=== PATIENT | female | born 1965 | race Caucasian/White ===

== ENCOUNTER → 2017-08-04 | Outpatient (CLI) | payer BC ==
[~2017-08-04] MED LIST: FLX10 PO; [UNRECOGNIZED DRUG - REMARK]
--- NOTE | 2017-08-05 07:48 | MAMMOGRAPHY REPORT ---
BILATERAL DIGITAL SCREENING MAMMOGRAM TOMOSYNTHESIS WITH CAD: 08/04/2017 CLINICAL HISTORY: Routine screening. Patient has no complaints. TECHNIQUE: Breast tomosynthesis in addition to standard 2D mammography was performed. Current study was also evaluated with a Computer Aided Detection (CAD) system. COMPARISON: Comparison is made to exams dated: 01/15/2010 mammogram - [facility] an d 11/07/2008. BREAST COMPOSITION: The tissue of both breasts is heterogeneously dense, which may obscure small mas ses. There are benign mild involutional changes comparing to more remote prior mammograms. FINDINGS: There are stable loose groupings of punctate microcalcifications in each breast. No suspic ious mass, architectural distortion or cluster of suspicious microcalcifications is seen. IMPRESSION: ACR BI-RADS CATEGORY 2: BENIGN There is no mammographic evidence of malignancy. A 1 year screening mammogram is recommended. The pa tient will receive written notification of the results. Approximately 10% of breast cancers are not detected with mammography. A negative mammographic report should not delay biopsy if a clinically suggestive mass is present. Sierra Mccormack M.D. ay/:08/04/2017 16:12:35 [facility] Radar Operator/Navigator: Aminah STRONG(Cailin)(Naz[place]), [facility] letter sent: Normal 1/2 BI-RADS Code: ACR BI-RADS Category 2: Benign
== END | disposition home or self-care (01) ==
LOC: C.MAMM 15:51
PROVIDERS: ATTEND Internal Medicine
DX: Z12.31 Encounter for screening mammogram for malignant neoplasm of breast (principal)

== ENCOUNTER → 2017-09-08 | Outpatient (CLI) | payer BC ==
[2017-09-08 18:24] LABS: URINE APPEARANCE CLEAR (CLEAR); URINE BILIRUBIN NEG (NEG); URINE COLOR YELLOW; URINE NITRITE NEG (NEG); URINE PH 6.5 (4.5-7.5); URINE SPECIFIC GRAVITY 1.009 (1.000-1.030); UROBILINOGEN NEG (NEG); ZZUR CULT IF INDIC CLEAN CATCH YES
[2017-09-08 18:33] LABS: MANUAL MICROSCOPIC REQUIRED? NO; REVIEW REQ? NO
== END | disposition home or self-care (01) ==
LOC: C.LABSPEC 17:44
PROVIDERS: ATTEND Internal Medicine
DX: Z87.898 Personal history of other specified conditions (principal)